=== PATIENT | male | born 1995 | race Caucasian/White ===

== ENCOUNTER → 2020-12-17 08:54 | Outpatient (CLI) | payer OTHER, SELFPAY ==
[2020-12-17 11:16] LABS: COVID19 -Nasal RAPID Negative (Negative)
== END ==
PROVIDERS: Visit Provider Nurse Practitioner
DX: Z20.822 Contact with and (suspected) exposure to COVID-19 (principal); R09.81 Nasal congestion
CPT/HCPCS: 87635